=== PATIENT | female | born 1965 | race African-American/Black ===

== ENCOUNTER 2018-02-20 10:49 | Inpatient (IN) ==
[2018-02-20] MEDS ORDERED: NITROGLYCERIN 2% OINT 1 INCH/GM PACK TOP STA (11:36)
[2018-02-20] MEDS ORDERED: ALUM/MAG/SIMETH/LIDO VISC 1:1 30 ML BOTTLE PO STA (11:36)
[2018-02-20] MEDS ORDERED: ONDANSETRON 4 MG/2 ML VIAL IV STA (11:36)
[2018-02-20] MEDS ORDERED: SODIUM CHLORIDE 0.9% 500 ML IV STA (11:36)
[2018-02-20] MEDS ORDERED: ASPIRIN 325 MG TABLET PO STA (11:36)
[2018-02-20] MEDS ORDERED: MORPHINE 4 MG/1 ML VIAL IV STA (11:36)
[2018-02-20 12:31] LABS: Basophils % 0.3 % (0.0-0.8); Eosinophils # 0.1 10*3/uL (0.0-0.87); Eosinophils % 2.3 % (0.00-10.9); Hematocrit 38.3 VOL% (35.7-47.0); Hemoglobin 12.1 GM/DL (12.0-16.0); Immature Granulocytes % 0.3 %; Immature Granulocytes Absolute 0.01 #; Lymphocytes # 1.3 10*3/uL (1.4-4.0); Lymphocytes % 32.8 % (21.3-54.2); Mean Corpuscular HGB Conc 31.6 GM/DL (32-36); Mean Corpuscular Hemoglobin 29 PG (27-34); Mean Platelet Volume 9.6 FL (9.6-12.0); Monocytes # 0.2 10*3/uL (0.11-0.8); Monocytes % 5.7 % (1.7-12.7); Neutrophils # 2.3 10*3/uL (1.4-7.4); Neutrophils % 58.6 % (38.7-73.9); Platelet Count 193 T/CUMM (130-400); Red Blood Count 4.12 MC/CUMM (3.8-5.5); Red Cell Distribution Width 13.9 % (9.3-17.3); White Blood Count 3.8 T/CUMM (4-12)
[2018-02-20 12:39] LABS: Apearance,Urine CLEAR (Clear); Bacteria,Urine Occasional /HPF (Few); Bilirubin,Urine Negative (Negative); Blood, Urine Moderate mg/dL (Negative); Glucose,Urine (UA) Negative (Negative); Ketones,Urine Negative (Negative); Mucus,Urine Few /LPF (Occasional); Nitrite,Urine Negative (Negative); Protein,Urine Negative; RBC,Urine 12 /HPF (0-4); Squamous Epithelial Cell,Urine Occasional /HPF (0-10); Urine Color Yellow (Yellow); Urine Specific Gravity 1.014 (1.001-1.035); Urine Urobilinogen < 2.0 EU/DL (0.2-1.0); WBC,Urine 1 /HPF (0-6)
[2018-02-20 12:42] LABS: INR 1.1; PT Patient Result 11.6 SECS
[2018-02-20 12:53] LABS: Alanine Aminotransferase 27 U/L (13-56); Albumin 3.5 G/DL (3.4-5.0); Alkaline Phosphatase 80 U/L (45-117); Aspartate Amino Transferase 29 U/L (0-37); Bilirubin,Total < 0.39 MG/DL (0.2-1.0); Blood Urea Nitrogen 9 MG/DL (7-18); Calcium 8.4 MG/DL (8.5-10.1); Glucose 103 MG/DL (74-106); Osmolality,Calculated 288.6 MOS/KG (273-304); Potassium 3.6 MMOL/L (3.5-5.1); Sodium 146 MMOL/L (136-145); Total Protein 6.7 G/DL (6.4-8.3)
[2018-02-20 13:11] LABS: Barbiturates Screen,Urine Negative (Negative); Benzodiazepines Screen,Urine Negative (Negative); Cannabinoid Screen,Urine Positive (Negative); Opiate Screen,Urine Positive (Negative); Phencyclidine Screen,Urine Negative (Negative)
[2018-02-20] MEDS ORDERED: ENOXAPARIN 100 MG/ML SYRINGE SUBCUT STA (13:31)
[2018-02-20] MEDS ORDERED: ACETAMINOPHEN 325 MG TABLET PO PRN (14:17)
[2018-02-20] MEDS ORDERED: DOCUSATE SODIUM 100 MG CAPSULE PO PRN (14:17)
[2018-02-20] MEDS ORDERED: ALUM/MAG/SIMETH/LIDO VISC 1:1 30 ML BOTTLE PO PRN (14:22)
[2018-02-20] MEDS ORDERED: ZALEPLON 5 MG CAPSULE PO PRN (14:22)
[2018-02-20] MEDS: NITROGLYCERIN 2% OINT 1 INCH/GM PACK TOP SCH (17:59)
[2018-02-20] MEDS ORDERED: ENOXAPARIN 30 MG/0.3 ML SYRINGE SUBCUT SCH (21:00)
[2018-02-20] MEDS ORDERED: ATORVASTATIN 10 MG TABLET PO SCH (21:00)
[2018-02-21] MEDS: NITROGLYCERIN 2% OINT 1 INCH/GM PACK TOP SCH ×4 (00:20→17:49)
[2018-02-21] MEDS: diphenhydrAMINE 50 MG/1 ML VIAL IV PRN ×3 (00:43→19:35)
[2018-02-21] MEDS: ONDANSETRON 4 MG/2 ML VIAL IV PRN ×2 (03:49→22:20)
[2018-02-21 06:19] LABS: Basophils % 0.2 % (0.0-0.8); Eosinophils # 0.1 10*3/uL (0.0-0.87); Eosinophils % 2.6 % (0.00-10.9); Hemoglobin 10.8 GM/DL (12.0-16.0); Immature Granulocytes % 0.2 %; Immature Granulocytes Absolute 0.01 #; Lymphocytes # 1.9 10*3/uL (1.4-4.0); Lymphocytes % 43.9 % (21.3-54.2); Mean Corpuscular HGB Conc 32.7 GM/DL (32-36); Mean Corpuscular Hemoglobin 30 PG (27-34); Mean Corpuscular Volume 92.4 FL (87-102); Monocytes # 0.3 10*3/uL (0.11-0.8); Monocytes % 6.3 % (1.7-12.7); Neutrophils % 46.8 % (38.7-73.9); Platelet Count 161 T/CUMM (130-400); Red Blood Count 3.57 MC/CUMM (3.8-5.5); Red Cell Distribution Width 13.7 % (9.3-17.3); White Blood Count 4.3 T/CUMM (4-12)
[2018-02-21 06:47] LABS: Calcium 7.8 MG/DL (8.5-10.1); Potassium 3.4 MMOL/L (3.5-5.1)
[2018-02-21] MEDS ORDERED: POTASSIUM CHLORIDE 20 MEQ TABLET PO ONE (07:46)
[2018-02-21] MEDS ORDERED: BACITRACIN OINT 0.9 GM PACK TOP ONE (08:26)
[2018-02-21] MEDS ORDERED: NON-FORMULARY MEDICATION (Meloxicam [Mobic] 15 MG) PO SCH (09:00)
[2018-02-21] MEDS: ASPIRIN EC 81 MG TABLET PO SCH (09:41)
[2018-02-21] MEDS: PANTOPRAZOLE 40 MG TABLET PO SCH (09:41)
[2018-02-21] MEDS: MULTIVITAMIN (CENTRUM) TABLET PO SCH (09:42)
[2018-02-21] MEDS: CALCIUM (CARBONATE)/VITAMIN D 600 MG-400 UNIT TABLET PO SCH (09:42)
[2018-02-21] MEDS ORDERED: DIAZEPAM 5 MG TABLET PO ONE (11:51)
[2018-02-21] MEDS ORDERED: MAGNESIUM SULF RIDER 2 GM in PREMIX 1 EACH IV PRN (11:51)
[2018-02-21] MEDS ORDERED: POTASSIUM CHLORIDE RIDER 10 MEQ in PREMIX 1 EACH IV PRN (11:51)
[2018-02-21] MEDS ORDERED: diphenhydrAMINE 50 MG/1 ML VIAL IV ONE (11:57)
[2018-02-21] MEDS ORDERED: methylPREDNISolone SOD SUC 125 MG/2 ML VIAL IV ONE (11:59)
[2018-02-21] MEDS: SODIUM CHLORIDE 0.9% 1,000 ML IV SCH ×2 (12:17→21:04)
[2018-02-21] MEDS ORDERED: fentaNYL 100 MCG/2 ML VIAL ONE (12:31)
[2018-02-21] MEDS ORDERED: LIDOCAINE 1% 20 ML VIAL ONE (12:31)
[2018-02-21] MEDS ORDERED: NITROGLYCERIN DRIP 50 MG/250 ML BOTTLE IV ONE (12:31)
[2018-02-21] MEDS ORDERED: MIDAZOLAM 2 MG/2 ML VIAL ONE (12:31)
[2018-02-21] MEDS ORDERED: VERAPAMIL 5 MG/2 ML VIAL ONE (12:31)
[2018-02-21] MEDS ORDERED: ENOXAPARIN 30 MG/0.3 ML SYRINGE ONE (13:19)
[2018-02-21] MEDS: amLODIPine 5 MG TABLET PO SCH (15:46)
[2018-02-21] MEDS ORDERED: AMITRIPTYLINE 25 MG TABLET PO SCH (21:00)
[2018-02-21] MEDS ORDERED: ENOXAPARIN 30 MG/0.3 ML SYRINGE SUBCUT SCH (21:00)
[2018-02-22] MEDS: NITROGLYCERIN 2% OINT 1 INCH/GM PACK TOP SCH ×3 (00:55→12:16)
[2018-02-22] MEDS: SODIUM CHLORIDE 0.9% 1,000 ML IV SCH (05:37)
[2018-02-22 05:51] LABS: Basophils % 0.1 % (0.0-0.8); Eosinophils % 0.3 % (0.00-10.9); Hematocrit 35.7 VOL% (35.7-47.0); Immature Granulocytes % 0.4 %; Immature Granulocytes Absolute 0.03 #; Lymphocytes % 13.6 % (21.3-54.2); Mean Corpuscular HGB Conc 33.6 GM/DL (32-36); Mean Corpuscular Hemoglobin 30 PG (27-34); Mean Corpuscular Volume 88.6 FL (87-102); Mean Platelet Volume 10.2 FL (9.6-12.0); Monocytes # 0.5 10*3/uL (0.11-0.8); Monocytes % 6.8 % (1.7-12.7); Neutrophils # 5.8 10*3/uL (1.4-7.4); Neutrophils % 78.8 % (38.7-73.9); Platelet Count 210 T/CUMM (130-400); Red Blood Count 4.03 MC/CUMM (3.8-5.5); Red Cell Distribution Width 13.3 % (9.3-17.3); White Blood Count 7.3 T/CUMM (4-12)
[2018-02-22 06:04] LABS: Calcium 8.6 MG/DL (8.5-10.1); Potassium 3.7 MMOL/L (3.5-5.1)
[2018-02-22] MEDS: diphenhydrAMINE 50 MG/1 ML VIAL IV PRN (06:28)
[2018-02-22] MEDS: ONDANSETRON 4 MG/2 ML VIAL IV PRN (09:02)
[2018-02-22] MEDS: CALCIUM (CARBONATE)/VITAMIN D 600 MG-400 UNIT TABLET PO SCH (09:05)
[2018-02-22] MEDS: PANTOPRAZOLE 40 MG TABLET PO SCH (09:05)
[2018-02-22] MEDS: MULTIVITAMIN (CENTRUM) TABLET PO SCH (09:05)
[2018-02-22] MEDS: ASPIRIN EC 81 MG TABLET PO SCH (09:05)
[2018-02-22] MEDS: amLODIPine 5 MG TABLET PO SCH (09:07)
[2018-02-22] MEDS ORDERED: diphenhydrAMINE CAP 50 MG CAPSULE ONE (11:57)
[2018-02-22] MEDS ORDERED: diphenhydrAMINE CAP 50 MG CAPSULE PO PRN (12:11)
[2018-02-22 12:35] VITALS: BP 123/69
== END 2018-02-22 13:34 | disposition home or self-care (01) | DRG 287 ==
LOC: N.EDINP 10:49 → N.ED 10:49 → N.2W 15:28 → N.TELEN 17:45
PROC: CLCCHCL (ICD-10-PCS; 2018-02-21 12:45)

== ENCOUNTER 2021-11-13 13:02 | Observation (INO) ==
[2021-11-13] MEDS ORDERED: SODIUM CHLORIDE 0.9% 500 ML IV STA (13:34)
[2021-11-13] MEDS ORDERED: ONDANSETRON 4 MG/2 ML VIAL IV STA (13:34)
[2021-11-13] MEDS ORDERED: KETOROLAC 30 MG/1 ML VIAL IV STA (13:34)
[2021-11-13] MEDS ORDERED: HYDROmorphone 2 MG/1 ML VIAL IV STA (14:17)
[2021-11-13] MEDS ORDERED: MAGNESIUM HYDROXIDE SUSP 30 ML UDCUP PO PRN (16:07)
[2021-11-13] MEDS ORDERED: ONDANSETRON 4 MG/2 ML VIAL IV PRN (16:07)
[2021-11-13 16:43] LABS: Basophils % 0.2 % (0.0-0.8); Eosinophils % 0.6 % (0.00-10.9); Hematocrit 40.3 VOL% (35.7-47.0); Hemoglobin 12.7 GM/DL (12.0-16.0); Immature Granulocytes % 0.5 %; Immature Granulocytes Absolute 0.03 #; Lymphocytes # 1.1 10*3/uL (1.4-4.0); Mean Corpuscular HGB Conc 31.5 GM/DL (32-36); Mean Corpuscular Volume 97.8 FL (87-102); Monocytes % 8.7 % (1.7-12.7); Platelet Count 291 T/CUMM (130-400); Red Blood Count 4.12 MC/CUMM (3.8-5.5); Red Cell Distribution Width 14.5 % (9.3-17.3); White Blood Count 6.6 T/CUMM (4-12)
[2021-11-13 16:53] LABS: Bilirubin,Urine Negative (Negative); Blood, Urine Trace mg/dL (Negative); Glucose,Urine (UA) Negative (Negative); Ketones,Urine Negative (Negative); Nitrite,Urine Negative (Negative); Protein,Urine Negative; Urine Appearance Clear (Clear); Urine Color Light Yellow (Yellow); Urine Specific Gravity 1.015 (1.001-1.035); Urine Urobilinogen 0.2 EU/DL (<2.0); Urine pH 7.5 (4.5-8.0)
[2021-11-13 16:59] LABS: Bacteria,Urine Occasional /HPF (Few); Mucus,Urine Occasional /LPF (Occasional); RBC,Urine 6 /HPF (0-4); Squamous Epithelial Cell,Urine Occasional /HPF (0-10)
[2021-11-13 17:05] LABS: Eosinophils 2 % (0-10); Lymphocytes 14 % (20-55); Segmented Neutrophils 76 % (50-85); Total Cells Counted 100
[2021-11-13 17:06] LABS: Platelet Estimate Normal
[2021-11-13] MEDS: HYDROmorphone 2 MG/1 ML VIAL IV PRN ×2 (17:07→20:16)
[2021-11-13 17:13] LABS: Calcium 8.8 MG/DL (8.5-10.1); Osmolality,Calculated 277.5 MOS/KG (273-304); Potassium 4.4 MMOL/L (3.5-5.1)
[2021-11-13] MEDS: DEXTROSE 5% NACL 0.45% 1,000 ML IV SCH (17:58)
[2021-11-13] MEDS ORDERED: METHOCARBAMOL 500 MG TABLET PO SCH (21:00)
[2021-11-13] MEDS: METHOCARBAMOL 750 MG TABLET PO SCH (21:14)
[2021-11-13] MEDS: PREGABALIN 25 MG CAPSULE PO SCH (21:14)
[2021-11-13] MEDS: ALPRAZolam 0.5 MG TABLET PO SCH (21:15)
[2021-11-14] MEDS: HYDROmorphone 2 MG/1 ML VIAL IV PRN ×7 (01:56→22:09)
[2021-11-14] MEDS: DEXTROSE 5% NACL 0.45% 1,000 ML IV SCH ×4 (04:22→22:07)
[2021-11-14] MEDS ORDERED: ONDANSETRON 4 MG/2 ML VIAL ONE ×2 (07:11→08:25)
[2021-11-14] MEDS ORDERED: propofoL 200 MG/20 ML VIAL IV ONE (07:11)
[2021-11-14] MEDS ORDERED: LIDOCAINE 2% 5 ML VIAL ONE (07:11)
[2021-11-14] MEDS ORDERED: fentaNYL 100 MCG/2 ML VIAL ONE (07:12)
[2021-11-14] MEDS ORDERED: MIDAZOLAM 2 MG/2 ML VIAL ONE (07:12)
[2021-11-14] MEDS ORDERED: DEXAMETHASONE 4 MG/1 ML VIAL ONE ×2 (08:25→09:49)
[2021-11-14] MEDS ORDERED: KETOROLAC 30 MG/1 ML VIAL ONE (08:25)
[2021-11-14] MEDS ORDERED: SEVOFLURANE 1 UNIT/15 MINUTE INH ONE (08:25)
[2021-11-14] MEDS ORDERED: LACTATED RINGERS 1,000 ML IV ONE (08:25)
[2021-11-14] MEDS ORDERED: ACETAMINOPHEN INJ 1,000 MG/100 ML VIAL IV ONE (08:25)
[2021-11-14] MEDS ORDERED: ceFAZolin 1,000 MG VIAL ONE ×2 (08:31)
[2021-11-14] MEDS ORDERED: ROPIVACAINE 0.5% 30 ML VIAL ONE (09:50)
[2021-11-14] MEDS ORDERED: ONDANSETRON 4 MG/2 ML VIAL IV PRN (10:24)
[2021-11-14] MEDS: PREGABALIN 25 MG CAPSULE PO SCH ×2 (10:40→20:38)
[2021-11-14] MEDS: amLODIPine 5 MG TABLET PO SCH (10:41)
[2021-11-14] MEDS: PANTOPRAZOLE 40 MG TABLET PO SCH (10:41)
[2021-11-14] MEDS: METHOCARBAMOL 750 MG TABLET PO SCH ×2 (10:41→20:38)
[2021-11-14] MEDS: ALPRAZolam 0.5 MG TABLET PO SCH (20:38)
[2021-11-15] MEDS: HYDROmorphone 2 MG/1 ML VIAL IV PRN ×6 (01:27→23:38)
[2021-11-15] MEDS: DEXTROSE 5% NACL 0.45% 1,000 ML IV SCH ×2 (07:32→18:39)
[2021-11-15 08:09] LABS: Basophils % 0.2 % (0.0-0.8); Eosinophils % 0.2 % (0.00-10.9); Hemoglobin 9.4 GM/DL (12.0-16.0); Immature Granulocytes % 0.4 %; Immature Granulocytes Absolute 0.03 #; Lymphocytes # 1.4 10*3/uL (1.4-4.0); Lymphocytes % 17.1 % (21.3-54.2); Mean Corpuscular HGB Conc 31.3 GM/DL (32-36); Mean Platelet Volume 9.4 FL (9.6-12.0); Monocytes % 10.2 % (1.7-12.7); Neutrophils % 71.9 % (38.7-73.9); Platelet Count 227 T/CUMM (130-400); Red Blood Count 3.03 MC/CUMM (3.8-5.5); Red Cell Distribution Width 14.4 % (9.3-17.3); White Blood Count 8.4 T/CUMM (4-12)
[2021-11-15] MEDS: PANTOPRAZOLE 40 MG TABLET PO SCH (08:22)
[2021-11-15] MEDS: METHOCARBAMOL 750 MG TABLET PO SCH ×2 (08:22→20:02)
[2021-11-15] MEDS: PREGABALIN 25 MG CAPSULE PO SCH ×2 (08:23→20:02)
[2021-11-15] MEDS: amLODIPine 5 MG TABLET PO SCH (08:23)
[2021-11-15 08:39] LABS: Calcium 8.3 MG/DL (8.5-10.1); Osmolality,Calculated 279.5 MOS/KG (273-304); Potassium 3.7 MMOL/L (3.5-5.1)
[2021-11-15] MEDS: ESCITALOPRAM 10 MG TABLET PO SCH (11:24)
[2021-11-15] MEDS: ALPRAZolam 0.5 MG TABLET PO SCH (20:02)
[2021-11-16] MEDS: HYDROmorphone 2 MG/1 ML VIAL IV PRN ×4 (02:20→20:08)
[2021-11-16] MEDS: DEXTROSE 5% NACL 0.45% 1,000 ML IV SCH (03:31)
[2021-11-16 05:37] LABS: Basophils % 0.2 % (0.0-0.8); Eosinophils # 0.1 10*3/uL (0.0-0.87); Hematocrit 29.6 VOL% (35.7-47.0); Hemoglobin 9.4 GM/DL (12.0-16.0); Immature Granulocytes % 0.3 %; Immature Granulocytes Absolute 0.02 #; Lymphocytes # 2.1 10*3/uL (1.4-4.0); Lymphocytes % 36.1 % (21.3-54.2); Mean Corpuscular HGB Conc 31.8 GM/DL (32-36); Mean Corpuscular Volume 98.3 FL (87-102); Mean Platelet Volume 9.5 FL (9.6-12.0); Monocytes % 11.8 % (1.7-12.7); Neutrophils % 50.6 % (38.7-73.9); Platelet Count 233 T/CUMM (130-400); Red Blood Count 3.01 MC/CUMM (3.8-5.5); Red Cell Distribution Width 14.7 % (9.3-17.3); White Blood Count 5.9 T/CUMM (4-12)
[2021-11-16 05:55] LABS: Calcium 8.4 MG/DL (8.5-10.1); Osmolality,Calculated 280.1 MOS/KG (273-304); Potassium 4.1 MMOL/L (3.5-5.1)
[2021-11-16] MEDS: PANTOPRAZOLE 40 MG TABLET PO SCH (08:59)
[2021-11-16] MEDS: PREGABALIN 25 MG CAPSULE PO SCH ×2 (08:59→22:06)
[2021-11-16] MEDS: ESCITALOPRAM 10 MG TABLET PO SCH (08:59)
[2021-11-16] MEDS: METHOCARBAMOL 750 MG TABLET PO SCH ×2 (08:59→22:06)
[2021-11-16] MEDS: amLODIPine 5 MG TABLET PO SCH (08:59)
[2021-11-16] MEDS: ENOXAPARIN 40 MG/0.4 ML SYRINGE SUBCUT SCH (09:00)
[2021-11-16] MEDS ORDERED: LACTULOSE 20 GM/30 ML UDCUP PO PRN (11:24)
[2021-11-16] MEDS ORDERED: LACTULOSE 20 GM/30 ML UDCUP PO ONE (11:30)
[2021-11-16] MEDS: ALPRAZolam 0.5 MG TABLET PO SCH (22:06)
[2021-11-17] MEDS: HYDROmorphone 2 MG/1 ML VIAL IV PRN ×2 (01:22→08:27)
[2021-11-17 08:19] VITALS: BP 118/67
[2021-11-17] MEDS: ENOXAPARIN 40 MG/0.4 ML SYRINGE SUBCUT SCH (08:26)
[2021-11-17] MEDS: ESCITALOPRAM 10 MG TABLET PO SCH (08:26)
[2021-11-17] MEDS: PREGABALIN 25 MG CAPSULE PO SCH (08:26)
[2021-11-17] MEDS: amLODIPine 5 MG TABLET PO SCH (08:26)
[2021-11-17] MEDS: METHOCARBAMOL 750 MG TABLET PO SCH (08:26)
[2021-11-17] MEDS: PANTOPRAZOLE 40 MG TABLET PO SCH (08:26)
== END 2021-11-17 11:50 ==
LOC: EDUNIT# → EDBD → N.ED 13:02 → N.EDINP 13:02 → N.3E 20:53
PROVIDERS: ADMIT Orthopaedic Surgery; ATTEND Orthopaedic Surgery